=== PATIENT | female | born 1985 | race Caucasian/White ===

== ENCOUNTER 2016-08-29 12:45 | Emergency (ER) | payer OTHER ==
[~2016-08-29] VITALS: Ht 170.1 cm; Wt 127.9 kg
[~2016-08-29 12:45] MED LIST: ALBUTEROL0.09 MG/A2 INH; ALLEGRA60 M2 PO; AMOXICILLIN500 M2 PO; AMOXICILLIN500 MG PO; ANAPROX DS550 MG PO; AUGMENTIN 875-875 MG PO; BENADRYL25 M1 PO; CARAFATE1 G1 PO; CEFDINIR300 MG PO; CLARITIN10 M1 PO; DEXTROMETHORPHAN; DIFLUCAN150 MG PO; FLEXERIL10 MG PO; FLONASE ALLERG9.9 ML NAS; GUAIFENESIN; HYDROCODONE BIT1 T11 PO; IBU800 MG PO; KETOROLAC10 MG PO; LEVAQUIN750 MG PO; LOMOTIL 0.025 M1 TA1 PO; MACROBID100 M1 PO; MEDROL DOSEPAK4 MG PO; MOTRIN800 MG PO; Motrin,Rufen800 MG PO; NAPROXEN375 MG PO; PENICILLIN VK500 MG PO; PREDNICOT20 MG PO; PREDNISONE10 MG PO; PREDNISONE20 MG PO; PROTONIX40 MG PO; Peridex 473 ML473 ML PO; ROBITUSSIN AC 110 ML PO; ROBITUSSIN DM 105 ML PO; TYLENOL W/CODEI1 TA2 PO; TYLENOL325 M1 PO; ZANTAC 150150 MG PO; ZANTAC150 MG PO; ZITHROMAX Z PA250 MG PO; ZITHROMAX250 MG PO; ZOFRAN ODT4 MG SL; Zofran4 MG PO; [UNRECOGNIZED DRUG - REMARK]
[2016-08-29 12:49] VITALS: BP 115/55
[2016-10-11] MEDS ORDERED: FLONASE ALLERG9.9 ML NAS (17:05)
[2016-10-11] MEDS ORDERED: CLARITIN10 MG PO (17:05)
[2016-10-11] MEDS ORDERED: PREDNISONE10 MG PO (17:05)
== END 2016-08-29 15:21 | disposition home or self-care (01) ==
LOC: ED 12:45
DX: S66.911A Strain of unspecified muscle, fascia and tendon at wrist and hand level, right hand, initial encounter (principal); F17.200 Nicotine dependence, unspecified, uncomplicated; Z91.040 Latex allergy status; Z91.013 Allergy to seafood; W23.0XXA Caught, crushed, jammed, or pinched between moving objects, initial encounter; Y93.89 Activity, other specified; Y92.89 Other specified places as the place of occurrence of the external cause; Y99.9 Unspecified external cause status

== ENCOUNTER 2016-11-13 19:57 | Emergency (ER) | payer OTHER ==
[~2016-11-13] VITALS: Ht 170.1 cm; Wt 126.1 kg
[~2016-11-13 19:57] MED LIST changes: +CLARITIN10 MG PO
[2016-11-13 20:21] VITALS: BP 140/83
[2016-11-13 20:48] LABS: BASO % 0.2 % (0.0-1.0); EOS # 0.2 10*3/uL (0.0-0.4); EOS % 2.5 % (1.0-4.0); HEMATOCRIT 43.4 % (37.0-47.0); HEMOGLOBIN 14.3 g/dl (12.0-16.0); LYMPH % 12.3 % (27.0-41.0); MEAN CELL VOLUME 91.9 fl (81.0-99.0); MEAN CORPUSCULAR HGB 30.3 pg (27.0-31.0); MEAN CORPUSCULAR HGB CONC 32.9 g/dl (33.0-37.0); MEAN PLATELET VOLUME 9.9 fl (9.6-12.3); MONO # 0.4 10*3/uL (0.1-1.0); MONO % 4.9 % (3.0-9.0); NEUT # 6.6 10*3/uL (2.3-7.9); NEUT % 79.7 % (47.0-73.0); PLATELET COUNT AUTOMATED 181 10*3/uL (130-400); RED BLOOD COUNT 4.72 10*6/uL (4.10-5.10); RED CELL DISTRI WIDTH 12.8 % (0-14.5); WHITE BLOOD COUNT 8.3 10*3/uL (4.8-10.8)
[2016-11-13 21:02] LABS: BILIRUBIN 1+ (NEGATIVE); BLOOD NEGATIVE (NEGATIVE); CLARITY SL CLOUDY (CLEAR); COLOR YELLOW (YELLOW); GLUCOSE NEGATIVE (NEGATIVE); KETONE TRACE (NEGATIVE); LEUKO ESTERASE NEGATIVE (NEGATIVE); NITRITE NEGATIVE (NEGATIVE); PROTEIN NEGATIVE (NEGATIVE); SPECIFIC GRAVITY >= 1.030 (1.005-1.030); UROBILINOGEN 0.2 E.U./dl (0.2-1.0)
[2016-11-13 21:03] LABS: ALBUMIN 3.7 gm/dl (3.1-4.5); ALKALINE PHOSPHATASE 74 U/L (45-117); BILIRUBIN, TOTAL 0.5 mg/dl (0.2-1.0); BUN 16 mg/dl (7-24); CARBON DIOXIDE 27 mmol/L (21-32); CHLORIDE 107 mmol/L (98-107); EST GLOM FILT AFRICAN AMERICAN > 60 ml/min; GLUCOSE 87 mg/dL (65-99); POTASSIUM 3.8 mmol/L (3.5-5.1); SGOT/AST 13 IU/L (3-35); SGPT/ALT 24 U/L (12-78); SODIUM 141 mmol/L (136-145)
[2016-11-13 21:21] LABS: RBC 0-2 rbc/hpf (0-2)
[2016-11-13 21:22] LABS: BACTERIA 1+
[2016-11-13 21:23] LABS: URINE REFLEX COMMENT YES (NO)
[2016-11-13] MEDS ORDERED: ANAPROX DS550 MG PO (22:28)
[2016-11-13] MEDS ORDERED: ROBAXIN500 M1 PO (22:28)
== END 2016-11-13 22:32 | disposition home or self-care (01) ==
LOC: ED 19:57
PROVIDERS: Physician Assistant
DX: M54.5 Low back pain (principal); F17.200 Nicotine dependence, unspecified, uncomplicated; Z91.013 Allergy to seafood; Z91.040 Latex allergy status

== ENCOUNTER 2016-12-12 19:31 | Emergency (ER) | payer OTHER ==
[~2016-12-12] VITALS: Ht 170.1 cm; Wt 123.4 kg
[~2016-12-12 19:31] MED LIST changes: +ROBAXIN500 M1 PO
[2016-12-12 19:55] VITALS: BP 128/76
[2016-12-12] MEDS ORDERED: ROBITUSSIN AC 110 ML PO (19:56)
[2016-12-12] MEDS ORDERED: ZITHROMAX250 MG PO (20:35)
[2016-12-12] MEDS ORDERED: PREDNISONE10 MG PO (20:35)
== END 2016-12-12 20:39 | disposition home or self-care (01) ==
LOC: ED 19:31
DX: J40 Bronchitis, not specified as acute or chronic (principal); F17.200 Nicotine dependence, unspecified, uncomplicated; Z91.013 Allergy to seafood; Z91.040 Latex allergy status

== ENCOUNTER 2017-04-28 10:22 | Emergency (ER) | payer OTHER ==
[~2017-04-28] VITALS: Ht 177.8 cm; Wt 113.4 kg
[2017-04-28 10:40] VITALS: BP 139/78
[2017-04-28] MEDS ORDERED: PREDNISONE10 MG PO (11:18)
[2017-04-28] MEDS ORDERED: FLONASE ALLERG9.9 ML NAS (11:18)
[2017-04-28] MEDS ORDERED: ROBITUSSIN DM 105 ML PO (11:18)
[2017-04-28] MEDS ORDERED: CLARITIN10 MG PO (11:18)
== END 2017-04-28 10:54 | disposition home or self-care (01) ==
LOC: ED 10:22
DX: B34.9 Viral infection, unspecified (principal); R03.0 Elevated blood-pressure reading, without diagnosis of hypertension; F17.200 Nicotine dependence, unspecified, uncomplicated; Z91.040 Latex allergy status; Z91.013 Allergy to seafood

== ENCOUNTER 2017-05-14 17:40 | Emergency (ER) | payer OTHER ==
[~2017-05-14] VITALS: Ht 170.1 cm; Wt 126.1 kg
[2017-05-14 18:09] VITALS: BP 123/74
[2017-05-14] MEDS ORDERED: ANAPROX DS550 MG PO (18:29)
[2017-05-14] MEDS ORDERED: CLINDAMYCIN HC300 MG PO (18:29)
== END 2017-05-14 18:35 | disposition home or self-care (01) ==
LOC: ED 17:40
DX: K08.89 Other specified disorders of teeth and supporting structures (principal); R22.0 Localized swelling, mass and lump, head; F17.200 Nicotine dependence, unspecified, uncomplicated; Z98.890 Other specified postprocedural states; Z91.030 Bee allergy status; Z91.040 Latex allergy status; Z91.013 Allergy to seafood

== ENCOUNTER 2017-06-22 15:46 | Emergency (ER) | payer OTHER ==
[~2017-06-22] VITALS: Ht 170.1 cm; Wt 126.1 kg
[~2017-06-22 15:46] MED LIST changes: +CLINDAMYCIN HC300 MG PO
[2017-06-22 16:10] VITALS: BP 117/66
[2017-06-22] MEDS ORDERED: NAPROSYN500 MG PO (16:55)
[2017-06-24] MEDS ORDERED: AVPAK AZITHROM250 M1 PO (08:55)
== END 2017-06-22 17:02 | disposition home or self-care (01) ==
LOC: ED 15:46
DX: J06.9 Acute upper respiratory infection, unspecified (principal); M54.6 Pain in thoracic spine; F17.200 Nicotine dependence, unspecified, uncomplicated; Z98.890 Other specified postprocedural states; Z79.899 Other long term (current) drug therapy; Z91.030 Bee allergy status; Z91.040 Latex allergy status; Z91.013 Allergy to seafood

== ENCOUNTER 2017-07-09 13:34 | Emergency (ER) | payer OTHER ==
[~2017-07-09] VITALS: Ht 170.1 cm; Wt 122.5 kg
[~2017-07-09 13:34] MED LIST changes: +AVPAK AZITHROM250 M1 PO; +NAPROSYN500 MG PO
[2017-07-09 13:38] VITALS: BP 132/60
[2017-07-09 14:09] LABS: BASO % 0.4 % (0.0-1.0); EOS # 0.1 10*3/uL (0.0-0.4); EOS % 0.9 % (1.0-4.0); HEMATOCRIT 43.9 % (37.0-47.0); HEMOGLOBIN 14.9 g/dl (12.0-16.0); LYMPH # 1.8 10*3/uL (1.3-4.4); LYMPH % 17.5 % (27.0-41.0); MEAN CELL VOLUME 90.9 fl (81.0-99.0); MEAN CORPUSCULAR HGB 30.8 pg (27.0-31.0); MEAN CORPUSCULAR HGB CONC 33.9 g/dl (33.0-37.0); MONO # 0.8 10*3/uL (0.1-1.0); MONO % 7.7 % (3.0-9.0); NEUT # 7.6 10*3/uL (2.3-7.9); NEUT % 73.2 % (47.0-73.0); PLATELET COUNT AUTOMATED 199 10*3/uL (130-400); RED BLOOD COUNT 4.83 10*6/uL (4.10-5.10); RED CELL DISTRI WIDTH 12.7 % (0-14.5); WHITE BLOOD COUNT 10.3 10*3/uL (4.8-10.8)
[2017-07-09 14:14] LABS: BILIRUBIN NEGATIVE (NEGATIVE); BLOOD NEGATIVE (NEGATIVE); CLARITY SL CLOUDY (CLEAR); COLOR YELLOW (YELLOW); GLUCOSE NEGATIVE (NEGATIVE); KETONE TRACE (NEGATIVE); LEUKO ESTERASE NEGATIVE (NEGATIVE); NITRITE NEGATIVE (NEGATIVE); SPECIFIC GRAVITY 1.025 (1.005-1.030)
[2017-07-09 14:21] LABS: BACTERIA 1+; EPITHELIAL CELLS 21-30; MUCOUS 1+
[2017-07-09 14:23] LABS: URINE AMPHETAMINES < 1000 (1000ng/ml); URINE BARBITURATES < 200 (200ng/ml); URINE BENZODIAZEPINES < 200 (200ng/ml); URINE CANNABINOIDS (THC) < 50 (50ng/ml); URINE COCAINE < 300 (300ng/ml); URINE METHADONE < 300 (300ng/ml); URINE OPIATES < 300 (300ng/ml)
[2017-07-09 14:24] LABS: URINE PHENCYCLIDINE < 25 (25ng/ml)
[2017-07-09 14:27] LABS: ALBUMIN 3.6 gm/dl (3.1-4.5); ALKALINE PHOSPHATASE 79 U/L (45-117); BUN 14 mg/dl (7-24); CHLORIDE 106 mmol/L (98-107); POTASSIUM 3.9 mmol/L (3.5-5.1); SGOT/AST 21 IU/L (3-35); SGPT/ALT 31 U/L (12-78); SODIUM 141 mmol/L (136-145); TOTAL PROTEIN 7.3 gm/dL (6.4-8.2)
[2017-07-09 14:28] LABS: B-hCG (QUALITATIVE) NEGATIVE (NEGATIVE); TROPONIN I < 0.015 ng/ml (<0.045)
[2017-07-09 14:33] LABS: THYROID STIM HORMONE (HS) 0.768 uIU/ml (0.358-4.75)
== END 2017-07-09 15:05 | disposition home or self-care (01) ==
LOC: ED 13:34
PROVIDERS: Internal Medicine
DX: B34.9 Viral infection, unspecified (principal); F17.200 Nicotine dependence, unspecified, uncomplicated; Z91.030 Bee allergy status; Z91.040 Latex allergy status; Z91.013 Allergy to seafood

== ENCOUNTER 2017-09-18 17:08 | Emergency (ER) | payer OTHER ==
[~2017-09-18] VITALS: Ht 170.1 cm; Wt 117.9 kg
[2017-09-18 17:22] VITALS: BP 122/66
[2017-09-18] MEDS ORDERED: LEVOFLOXACIN500 MG PO (19:06)
== END 2017-09-18 19:13 | disposition home or self-care (01) ==
LOC: ED 17:08
DX: J18.9 Pneumonia, unspecified organism (principal); F17.200 Nicotine dependence, unspecified, uncomplicated; Z98.890 Other specified postprocedural states; Z79.899 Other long term (current) drug therapy; Z91.030 Bee allergy status; Z91.040 Latex allergy status; Z91.013 Allergy to seafood

== ENCOUNTER 2018-04-22 19:21 | Emergency (ER) | payer OTHER ==
[~2018-04-22] VITALS: Ht 170.1 cm; Wt 114.8 kg
[~2018-04-22 19:21] MED LIST changes: +LEVOFLOXACIN500 MG PO
[2018-04-22 19:23] VITALS: BP 116/72
[2018-04-22] MEDS ORDERED: AUGMENTIN 875875 MG PO (20:00)
[2018-04-22] MEDS ORDERED: DELTASONE20 M1 PO (20:00)
== END 2018-04-22 20:10 | disposition home or self-care (01) ==
LOC: ED 19:21
DX: J01.90 Acute sinusitis, unspecified (principal); J40 Bronchitis, not specified as acute or chronic; Z91.030 Bee allergy status; Z91.040 Latex allergy status; Z91.013 Allergy to seafood

== ENCOUNTER 2018-05-14 20:17 | Emergency (ER) | payer OTHER ==
[~2018-05-14] VITALS: Ht 170.1 cm; Wt 127.9 kg
[~2018-05-14 20:17] MED LIST changes: +AUGMENTIN 875875 MG PO; +DELTASONE20 M1 PO
[2018-05-14 20:20] VITALS: BP 119/73
[2018-05-14 22:17] LABS: BASO % 0.5 % (0.0-1.0); EOS # 0.3 10*3/uL (0.0-0.4); EOS % 3.1 % (1.0-4.0); HEMATOCRIT 39.3 % (37.0-47.0); LYMPH # 2.6 10*3/uL (1.3-4.4); LYMPH % 32.1 % (27.0-41.0); MEAN CELL VOLUME 92.9 fl (81.0-99.0); MEAN CORPUSCULAR HGB 30.7 pg (27.0-31.0); MEAN CORPUSCULAR HGB CONC 33.1 g/dl (33.0-37.0); MEAN PLATELET VOLUME 9.7 fl (9.6-12.3); MONO # 0.6 10*3/uL (0.1-1.0); MONO % 7.6 % (3.0-9.0); NEUT # 4.5 10*3/uL (2.3-7.9); NEUT % 56.3 % (47.0-73.0); PLATELET COUNT AUTOMATED 208 10*3/uL (130-400); RED BLOOD COUNT 4.23 10*6/uL (4.10-5.10); RED CELL DISTRI WIDTH 13.2 % (0-14.5)
[2018-05-14 22:35] LABS: ALBUMIN 3.4 gm/dl (3.1-4.5); ALKALINE PHOSPHATASE 60 U/L (45-117); BUN 19 mg/dl (7-24); CHLORIDE 110 mmol/L (98-107); CREATININE 0.81 mg/dL (0.55-1.02); POTASSIUM 3.9 mmol/L (3.5-5.1); SGOT/AST 11 IU/L (3-35); SGPT/ALT 21 U/L (12-78); SODIUM 144 mmol/L (136-145); TOTAL PROTEIN 6.9 gm/dL (6.4-8.2)
== END 2018-05-14 23:28 | disposition home or self-care (01) ==
LOC: ED 20:17
PROVIDERS: Physician Assistant
DX: M79.662 Pain in left lower leg (principal); F17.200 Nicotine dependence, unspecified, uncomplicated; Z91.030 Bee allergy status; Z91.040 Latex allergy status; Z91.013 Allergy to seafood

== ENCOUNTER 2018-08-22 15:24 | Emergency (ER) | payer OTHER ==
[~2018-08-22] VITALS: Ht 170.1 cm; Wt 127.0 kg
[2018-08-22 15:24] VITALS: BP 112/42
[2018-08-22] MEDS ORDERED: PROAIR HFA8.5 GM INH (15:47)
[2018-08-22] MEDS ORDERED: PREDNISONE10 MG PO (15:47)
[2018-08-22] MEDS ORDERED: CLARITIN10 MG PO (15:47)
[2018-08-22] MEDS ORDERED: FLONASE ALLERG9.9 ML NAS (15:47)
== END 2018-08-22 16:42 | disposition home or self-care (01) ==
LOC: ED 15:24
DX: B34.9 Viral infection, unspecified (principal); J45.909 Unspecified asthma, uncomplicated; F17.200 Nicotine dependence, unspecified, uncomplicated; Z91.030 Bee allergy status; Z91.040 Latex allergy status; Z91.013 Allergy to seafood

== ENCOUNTER 2018-09-15 08:58 | Emergency (ER) | payer OTHER ==
[~2018-09-15] VITALS: Ht 170.1 cm; Wt 113.4 kg
[~2018-09-15 08:58] MED LIST changes: +PROAIR HFA8.5 GM INH
[2018-09-15 09:00] VITALS: BP 108/67
[2018-09-15] MEDS ORDERED: VIBRAMYCIN100 MG PO (09:43)
== END 2018-09-15 10:00 | disposition home or self-care (01) ==
LOC: ED 08:58
DX: J32.9 Chronic sinusitis, unspecified (principal); F17.210 Nicotine dependence, cigarettes, uncomplicated; Z91.030 Bee allergy status; Z91.040 Latex allergy status; Z91.013 Allergy to seafood

== ENCOUNTER 2018-10-05 21:20 | Emergency (ER) | payer OTHER ==
[~2018-10-05] VITALS: Ht 170.1 cm; Wt 122.5 kg
[~2018-10-05 21:20] MED LIST changes: +VIBRAMYCIN100 MG PO
[2018-10-05 21:22] VITALS: BP 107/65
[2018-10-05] MEDS ORDERED: PENICILLIN-VK500 MG PO (21:47)
[2018-10-05] MEDS ORDERED: NAPROSYN500 MG PO (21:47)
[2019-02-14] MEDS ORDERED: PREDNISONE10 MG PO (14:57)
[2019-02-14] MEDS ORDERED: PROAIR HFA8.5 GM INH (14:57)
== END 2018-10-05 21:54 | disposition home or self-care (01) ==
LOC: ED 21:20
DX: K02.9 Dental caries, unspecified (principal); F17.200 Nicotine dependence, unspecified, uncomplicated; Z79.899 Other long term (current) drug therapy; Z79.2 Long term (current) use of antibiotics

== ENCOUNTER 2019-03-09 17:36 | Emergency (ER) | payer OTHER ==
[~2019-03-09 17:36] MED LIST changes: +PENICILLIN-VK500 MG PO
[2019-03-09 17:38] VITALS: BP 129/73
[2019-03-09] MEDS ORDERED: AUGMENTIN 500500 M1 PO (17:45)
[2019-03-09] MEDS ORDERED: IBUPROFEN600 MG PO (18:07)
[2019-03-09] MEDS ORDERED: AMOXICILLIN500 M2 PO (18:07)
== END 2019-03-09 18:26 | disposition home or self-care (01) ==
LOC: ED 17:36
DX: K08.89 Other specified disorders of teeth and supporting structures (principal); Z79.899 Other long term (current) drug therapy; Z79.2 Long term (current) use of antibiotics

== ENCOUNTER 2019-05-03 17:14 | Emergency (ER) | payer OTHER ==
[~2019-05-03] VITALS: Ht 170.1 cm; Wt 114.3 kg
[~2019-05-03 17:14] MED LIST changes: +AUGMENTIN 500500 M1 PO; +IBUPROFEN600 MG PO
[2019-05-03 17:17] VITALS: BP 122/67
[2019-05-03] MEDS ORDERED: LORATADINE-D 11 EACH PO (19:13)
== END 2019-05-03 19:18 | disposition home or self-care (01) ==
LOC: ED 17:14
DX: J34.2 Deviated nasal septum (principal); J30.2 Other seasonal allergic rhinitis; F17.200 Nicotine dependence, unspecified, uncomplicated; Z98.890 Other specified postprocedural states

== ENCOUNTER 2019-05-29 23:01 | Emergency (ER) | payer OTHER ==
[~2019-05-29] VITALS: Ht 165.1 cm; Wt 72.6 kg
[~2019-05-29 23:01] MED LIST changes: +LORATADINE-D 11 EACH PO
[2019-05-29 23:02] VITALS: BP 130/77
[2019-05-29 23:51] LABS: BILIRUBIN NEGATIVE (NEGATIVE); BLOOD NEGATIVE (NEGATIVE); CLARITY SL CLOUDY (CLEAR); COLOR YELLOW (YELLOW); GLUCOSE NEGATIVE (NEGATIVE); KETONE NEGATIVE (NEGATIVE); LEUKO ESTERASE NEGATIVE (NEGATIVE); NITRITE NEGATIVE (NEGATIVE); SPECIFIC GRAVITY 1.025 (1.005-1.030); UROBILINOGEN 0.2 E.U./dl (0.2-1.0)
[2019-05-29 23:57] LABS: BACTERIA TRACE; EPITHELIAL CELLS 45-50; WBC 0-2 wbc/hpf (0-5)
== END 2019-05-30 00:28 | disposition home or self-care (01) ==
LOC: ED 23:01
PROVIDERS: Nurse Practitioner Family
DX: Z20.2 Contact with and (suspected) exposure to infections with a predominantly sexual mode of transmission (principal); J45.909 Unspecified asthma, uncomplicated; Z79.2 Long term (current) use of antibiotics; Z79.899 Other long term (current) drug therapy

== ENCOUNTER 2019-07-12 20:23 | Emergency (ER) | payer OTHER ==
[~2019-07-12] VITALS: Ht 170.1 cm; Wt 114.3 kg
[2019-07-12 20:24] VITALS: BP 128/65
[2019-07-12] MEDS ORDERED: TESSALON PERLE100 M1 PO (22:22)
[2019-07-12] MEDS ORDERED: PREDNISONE20 M1 PO (22:22)
[2019-07-12] MEDS ORDERED: PROVENTIL HFA6.7 GM INH (22:22)
== END 2019-07-12 22:40 | disposition home or self-care (01) ==
LOC: ED 20:23
DX: J45.909 Unspecified asthma, uncomplicated (principal); I10 Essential (primary) hypertension; F17.200 Nicotine dependence, unspecified, uncomplicated; Z91.013 Allergy to seafood; Z79.899 Other long term (current) drug therapy

== ENCOUNTER 2019-08-07 13:34 | Emergency (ER) | payer OTHER ==
[~2019-08-07] VITALS: Ht 170.1 cm; Wt 117.9 kg
[~2019-08-07 13:34] MED LIST changes: +PREDNISONE20 M1 PO; +PROVENTIL HFA6.7 GM INH; +TESSALON PERLE100 M1 PO
[2019-08-07 13:36] VITALS: BP 105/66
[2019-08-07] MEDS ORDERED: ZOFRAN4 MG PO (15:40)
== END 2019-08-07 16:00 | disposition home or self-care (01) ==
LOC: ED 13:34
DX: R11.2 Nausea with vomiting, unspecified (principal); R19.7 Diarrhea, unspecified; R68.83 Chills (without fever); J45.909 Unspecified asthma, uncomplicated; I10 Essential (primary) hypertension; F17.200 Nicotine dependence, unspecified, uncomplicated; Z91.013 Allergy to seafood; Z98.51 Tubal ligation status

== ENCOUNTER 2019-08-12 21:31 | Emergency (ER) | payer OTHER ==
[~2019-08-12] VITALS: Ht 170.1 cm; Wt 116.6 kg
[~2019-08-12 21:31] MED LIST changes: +ZOFRAN4 MG PO
[2019-08-12 21:32] VITALS: BP 113/81
[2019-08-12] MEDS ORDERED: CEPHALEXIN500 M1 PO (22:44)
== END 2019-08-12 23:20 | disposition home or self-care (01) ==
LOC: ED 21:31
DX: L03.116 Cellulitis of left lower limb (principal); I10 Essential (primary) hypertension; J45.909 Unspecified asthma, uncomplicated; Z91.013 Allergy to seafood; Z79.899 Other long term (current) drug therapy

== ENCOUNTER → 2019-08-13 | Outpatient (CLI) | payer OTHER ==
[~2019-08-13] MED LIST changes: +CEPHALEXIN500 M1 PO
== END | disposition home or self-care (01) ==
LOC: US 10:00
DX: L03.116 Cellulitis of left lower limb (principal); F17.200 Nicotine dependence, unspecified, uncomplicated

== ENCOUNTER 2019-08-16 16:36 | Inpatient (IN) | payer OTHER ==
[~2019-08-16] VITALS: Ht 170.1 cm; Wt 127.1 kg
[2019-08-16 16:54] VITALS: BP 111/65
[2019-08-16 18:20] LABS: HEMATOCRIT 42.1 % (37.0-47.0); MEAN CELL VOLUME 90.1 fl (81.0-99.0); MEAN CORPUSCULAR HGB CONC 33.3 g/dl (33.0-37.0); MEAN PLATELET VOLUME 12.6 fl (9.6-12.3); PLATELET COUNT AUTOMATED 80 10*3/uL (130-400); RED BLOOD COUNT 4.67 10*6/uL (4.10-5.10); RED CELL DISTRI WIDTH 13.5 % (0-14.5); WHITE BLOOD COUNT 6.3 10*3/uL (4.8-10.8)
[2019-08-16 18:37] LABS: ALBUMIN 3.3 gm/dl (3.1-4.5); ALKALINE PHOSPHATASE 107 U/L (45-117); BUN 10 mg/dl (7-24); CHLORIDE 106 mmol/L (98-107); CREATININE 0.99 mg/dL (0.55-1.02); POTASSIUM 3.4 mmol/L (3.5-5.1); SGOT/AST 42 IU/L (3-35); SGPT/ALT 50 U/L (12-78); SODIUM 137 mmol/L (136-145); TOTAL PROTEIN 7.1 gm/dL (6.4-8.2)
[2019-08-16 18:47] LABS: ATYPICAL LYMPHS 9 % (0-0); TOTAL CELLS COUNTED 100 #CELLS
[2019-08-16 18:48] LABS: OVALOCYTES FEW; PLATELET SUFFICIENCY LOW (NORMAL)
[2019-08-16 20:00] VITALS: BP 119/52
[2019-08-16 21:30] VITALS: BP 119/52
[2019-08-17] VITALS: BP 109/46
[2019-08-17 07:09] LABS: HEMATOCRIT 38.8 % (37.0-47.0); HEMOGLOBIN 12.7 g/dl (12.0-16.0); MEAN CELL VOLUME 90.9 fl (81.0-99.0); MEAN CORPUSCULAR HGB 29.7 pg (27.0-31.0); MEAN CORPUSCULAR HGB CONC 32.7 g/dl (33.0-37.0); MEAN PLATELET VOLUME 10.5 fl (9.6-12.3); RED BLOOD COUNT 4.27 10*6/uL (4.10-5.10); RED CELL DISTRI WIDTH 13.6 % (0-14.5); WHITE BLOOD COUNT 5.5 10*3/uL (4.8-10.8)
[2019-08-17 07:10] LABS: PLATELET COUNT AUTOMATED 156 10*3/uL (130-400)
[2019-08-17 07:36] LABS: BUN 12 mg/dl (7-24); CHLORIDE 109 mmol/L (98-107); CHOLESTEROL 152 mg/dL (<200); CREATININE 1.17 mg/dL (0.55-1.02); PHOSPHOROUS 2.5 mg/dL (2.5-4.9); SODIUM 138 mmol/L (136-145); TRIGLYCERIDES 168 mg/dl (<150); VLDL CHOLESTEROL 34 mg/dL (6-40)
[2019-08-17 07:37] LABS: HDL CHOLESTEROL 26 mg/dl (40-60); LDL CHOLESTEROL 92 mg/dL (9-159)
[2019-08-17 08:00] VITALS: BP 109/61
[2019-08-17 08:18] LABS: VITAMIN D, 25-HYDROXY 17.3 ng/mL (30-100)
[2019-08-17 08:37] LABS: ATYPICAL LYMPHS 8 % (0-0); BASOPHILS 2 % (0-1); TOTAL CELLS COUNTED 100 #CELLS
[2019-08-17 08:38] LABS: PLATELET SUFFICIENCY NORMAL (NORMAL)
[2019-08-17] MEDS ORDERED: CLEOCIN HCL150 MG PO (11:02)
== END 2019-08-17 11:55 | disposition home or self-care (01) | DRG 383 ==
LOC: ED 16:36 → 5E 20:02 → EDHOLD 20:02 → 5E 20:59
PROVIDERS: Internal Medicine; Physician Assistant; ADMIT Internal Medicine
DX: L03.116 Cellulitis of left lower limb (principal); E87.6 Hypokalemia; D69.6 Thrombocytopenia, unspecified; R00.0 Tachycardia, unspecified; R73.9 Hyperglycemia, unspecified; J45.909 Unspecified asthma, uncomplicated; E66.01 Morbid (severe) obesity due to excess calories; R74.0 Nonspecific elevation of levels of transaminase and lactic acid dehydrogenase [LDH]; F17.210 Nicotine dependence, cigarettes, uncomplicated; Z71.6 Tobacco abuse counseling; Z68.41 Body mass index [BMI] 40.0-44.9, adult; Z98.891 History of uterine scar from previous surgery; Z98.51 Tubal ligation status; Z82.49 Family history of ischemic heart disease and other diseases of the circulatory system; Z80.1 Family history of malignant neoplasm of trachea, bronchus and lung; Z82.69 Family history of other diseases of the musculoskeletal system and connective tissue; Z91.013 Allergy to seafood

== ENCOUNTER 2019-08-24 16:17 | Emergency (ER) | payer OTHER ==
[~2019-08-24] VITALS: Ht 170.1 cm; Wt 118.8 kg
[~2019-08-24 16:17] MED LIST changes: +CLEOCIN HCL150 MG PO
[2019-08-24 16:24] VITALS: BP 126/39
== END 2019-08-24 19:06 | disposition home or self-care (01) ==
LOC: ED 16:17
DX: S93.402A Sprain of unspecified ligament of left ankle, initial encounter (principal); F17.210 Nicotine dependence, cigarettes, uncomplicated; Z91.013 Allergy to seafood; W22.8XXA Striking against or struck by other objects, initial encounter; Y93.89 Activity, other specified; Y92.89 Other specified places as the place of occurrence of the external cause; Y99.8 Other external cause status

== ENCOUNTER 2019-10-27 19:13 | Emergency (ER) | payer OTHER ==
[~2019-10-27] VITALS: Ht 170.1 cm; Wt 123.4 kg
[2019-10-27 19:28] VITALS: BP 118/72
[2019-10-27 20:05] LABS: BILIRUBIN NEGATIVE (NEGATIVE); BLOOD 3+ (NEGATIVE); CLARITY SL CLOUDY (CLEAR); COLOR YELLOW (YELLOW); GLUCOSE NEGATIVE (NEGATIVE); KETONE NEGATIVE (NEGATIVE); LEUKO ESTERASE 3+ (NEGATIVE); NITRITE POSITIVE (NEGATIVE); UROBILINOGEN 0.2 E.U./dl (0.2-1.0)
[2019-10-27 20:06] LABS: BACTERIA 4+; RBC TNTC rbc/hpf (0-2); WBC TNTC wbc/hpf (0-5)
[2019-10-27] MEDS ORDERED: AMINOPHYLLIN200 MG PO (21:08)
== END 2019-10-27 21:12 | disposition home or self-care (01) ==
LOC: ED 19:13
PROVIDERS: Physician Assistant
DX: N39.0 Urinary tract infection, site not specified (principal); I10 Essential (primary) hypertension; J45.909 Unspecified asthma, uncomplicated; Z91.013 Allergy to seafood; Z79.899 Other long term (current) drug therapy

== ENCOUNTER 2020-01-26 23:20 | Emergency (ER) | payer OTHER ==
[~2020-01-26] VITALS: Ht 170.1 cm; Wt 117.9 kg
[~2020-01-26 23:20] MED LIST changes: +AMINOPHYLLIN200 MG PO
[2020-01-26 23:36] VITALS: BP 121/51
[2020-01-27] MEDS ORDERED: AMOXICILLIN500 M2 PO (00:39)
== END 2020-01-27 01:09 | disposition home or self-care (01) ==
LOC: ED 23:20
DX: H66.93 Otitis media, unspecified, bilateral (principal); E66.01 Morbid (severe) obesity due to excess calories; J45.909 Unspecified asthma, uncomplicated; I10 Essential (primary) hypertension; F17.210 Nicotine dependence, cigarettes, uncomplicated; Z91.013 Allergy to seafood; Z68.41 Body mass index [BMI] 40.0-44.9, adult

== ENCOUNTER 2020-03-21 15:07 | Emergency (ER) | payer OTHER ==
[~2020-03-21] VITALS: Ht 170.1 cm; Wt 90.7 kg
[2020-03-21 15:44] VITALS: BP 115/66
== END 2020-03-21 16:56 | disposition home or self-care (01) ==
LOC: ED 15:07
DX: R51 Headache (principal); R11.10 Vomiting, unspecified; R19.7 Diarrhea, unspecified; Z20.828 Contact with and (suspected) exposure to other viral communicable diseases; J45.909 Unspecified asthma, uncomplicated; Z79.899 Other long term (current) drug therapy; Z91.013 Allergy to seafood

== ENCOUNTER → 2020-09-05 | Outpatient (CLI) | payer OTHER | END | disposition home or self-care (01) | LOC: COVID19 10:40 | PROVIDERS: ATTEND Family Medicine | DX: Z20.822 Contact with and (suspected) exposure to COVID-19 (principal) ==

== ENCOUNTER 2020-12-26 07:44 | Emergency (ER) | payer OTHER ==
[~2020-12-26] VITALS: Ht 170.1 cm; Wt 128.4 kg
[2020-12-26 07:53] VITALS: BP 135/83
[2020-12-26] MEDS ORDERED: ZITHROMAX250 MG PO (08:04)
== END 2020-12-26 08:04 | disposition home or self-care (01) ==
LOC: ED 07:44
DX: J32.9 Chronic sinusitis, unspecified (principal); Z79.899 Other long term (current) drug therapy; Z98.890 Other specified postprocedural states; Z98.51 Tubal ligation status

== ENCOUNTER 2021-01-14 16:11 | Emergency (ER) | payer OTHER ==
[~2021-01-14] VITALS: Ht 170.1 cm; Wt 135.6 kg
[2021-01-14 16:18] VITALS: BP 125/74
[2021-01-14] MEDS ORDERED: OMNICEF300 MG PO (17:19)
== END 2021-01-14 17:44 | disposition home or self-care (01) ==
LOC: ED 16:11
DX: J32.9 Chronic sinusitis, unspecified (principal); Z79.899 Other long term (current) drug therapy; Z91.013 Allergy to seafood

== ENCOUNTER 2021-03-20 17:22 | Emergency (ER) | payer OTHER ==
[~2021-03-20] VITALS: Ht 170.1 cm; Wt 131.5 kg
[~2021-03-20 17:22] MED LIST changes: +OMNICEF300 MG PO
== END 2021-03-20 18:00 | disposition left against medical advice (07) ==
LOC: ED 17:22
DX: H57.89 Other specified disorders of eye and adnexa (principal); Z53.21 Procedure and treatment not carried out due to patient leaving prior to being seen by health care provider

== ENCOUNTER 2021-07-20 10:11 | Emergency (ER) | payer OTHER ==
[~2021-07-20] VITALS: Ht 170.1 cm; Wt 136.1 kg
[2021-07-20 10:50] LABS: BASO # 0.1 10*3/uL (0.0-0.1); BASO % 0.8 % (0.0-1.0); EOS # 0.2 10*3/uL (0.0-0.4); EOS % 3.2 % (1.0-4.0); HEMATOCRIT 43.9 % (37.0-47.0); LYMPH # 1.9 10*3/uL (1.3-4.4); LYMPH % 28.5 % (27.0-41.0); MEAN CELL VOLUME 91.3 fl (81.0-99.0); MEAN CORPUSCULAR HGB 30.4 pg (27.0-31.0); MEAN CORPUSCULAR HGB CONC 33.3 g/dl (33.0-37.0); MEAN PLATELET VOLUME 9.3 fl (9.6-12.3); MONO # 0.6 10*3/uL (0.1-1.0); MONO % 9.5 % (3.0-9.0); NEUT # 3.8 10*3/uL (2.3-7.9); NEUT % 57.5 % (47.0-73.0); PLATELET COUNT AUTOMATED 235 10*3/uL (130-400); RED BLOOD COUNT 4.81 10*6/uL (4.10-5.10); RED CELL DISTRI WIDTH 12.9 % (0-14.5); WHITE BLOOD COUNT 6.6 10*3/uL (4.8-10.8)
[2021-07-20 11:06] LABS: ALBUMIN 3.2 gm/dl (3.1-4.5); ALKALINE PHOSPHATASE 79 U/L (45-117); BUN 14 mg/dl (7-24); CHLORIDE 106 mmol/L (98-107); CREATININE 0.82 mg/dL (0.55-1.02); LIPASE 106 U/L (73-393); POTASSIUM 4.1 mmol/L (3.5-5.1); SGOT/AST 14 IU/L (3-35); SODIUM 141 mmol/L (136-145); TOTAL PROTEIN 7.1 gm/dL (6.4-8.2)
[2021-07-20 11:07] LABS: SGPT/ALT 22 U/L (12-78)
[2021-07-20] MEDS ORDERED: PRILOSEC20 M1 PO (11:29)
== END 2021-07-20 11:32 | disposition home or self-care (01) ==
LOC: ED 10:11
PROVIDERS: Emergency Medicine
DX: K21.9 Gastro-esophageal reflux disease without esophagitis (principal); M54.50 Low back pain, unspecified; E66.9 Obesity, unspecified; F17.210 Nicotine dependence, cigarettes, uncomplicated; Z91.013 Allergy to seafood

== ENCOUNTER 2021-08-11 16:02 | Emergency (ER) | payer OTHER ==
[~2021-08-11 16:02] MED LIST changes: +PRILOSEC20 M1 PO
== END 2021-08-11 16:33 | disposition left against medical advice (07) ==
LOC: ED 16:02
DX: Z53.21 Procedure and treatment not carried out due to patient leaving prior to being seen by health care provider (principal)

== ENCOUNTER 2021-09-12 16:03 | Emergency (ER) | payer OTHER ==
[~2021-09-12] VITALS: Wt 137.9 kg
[2021-09-12 16:18] VITALS: BP 136/81
[2021-09-12 16:45] LABS: BILIRUBIN Negative (Negative); BLOOD 1+ (Negative); CLARITY Clear (Clear); COLOR Yellow (Yellow); GLUCOSE Negative (Negative); KETONE Negative (Negative); LEUKO ESTERASE 1+ (Negative); NITRITE Negative (Negative); PH 6.5 (4.5-8.0); SPECIFIC GRAVITY <= 1.005 (1.001-1.030); UROBILINOGEN 0.2 E.U./dl (0.0-1.0)
[2021-09-12 16:56] LABS: BACTERIA 1+
[2021-09-12 17:29] LABS: BASO # 0.1 10*3/uL (0.0-0.1); BASO % 0.6 % (0.0-1.0); EOS # 0.2 10*3/uL (0.0-0.4); EOS % 2.7 % (1.0-4.0); LYMPH # 1.9 10*3/uL (1.3-4.4); LYMPH % 24.3 % (27.0-41.0); MEAN CELL VOLUME 90.9 fl (81.0-99.0); MEAN CORPUSCULAR HGB 30.4 pg (27.0-31.0); MEAN CORPUSCULAR HGB CONC 33.4 g/dl (33.0-37.0); MEAN PLATELET VOLUME 9.3 fl (9.6-12.3); MONO # 0.6 10*3/uL (0.1-1.0); MONO % 7.9 % (3.0-9.0); NEUT % 64.2 % (47.0-73.0); PLATELET COUNT AUTOMATED 217 10*3/uL (130-400); RED BLOOD COUNT 4.51 10*6/uL (4.10-5.10); WHITE BLOOD COUNT 7.8 10*3/uL (4.8-10.8)
[2021-09-12 17:47] LABS: ALBUMIN 3.2 gm/dl (3.1-4.5); ALKALINE PHOSPHATASE 80 U/L (45-117); BUN 16 mg/dl (7-24); CHLORIDE 108 mmol/L (98-107); CREATININE 0.88 mg/dL (0.55-1.02); LIPASE 120 U/L (73-393); POTASSIUM 4.2 mmol/L (3.5-5.1); SGOT/AST 19 IU/L (3-35); SGPT/ALT 23 U/L (12-78); SODIUM 138 mmol/L (136-145); TOTAL PROTEIN 6.7 gm/dL (6.4-8.2)
[2021-09-12] MEDS ORDERED: ZOFRAN4 MG PO (18:29)
[2021-09-12] MEDS ORDERED: CEFUROXIME AXE500 MG PO (18:29)
[2021-09-12] MEDS ORDERED: HYDROCODONE-AC1 EAC1 PO (18:29)
[2021-09-12] MEDS ORDERED: FLOMAX0.4 MG PO (18:29)
== END 2021-09-12 18:44 | disposition home or self-care (01) ==
LOC: ED 16:03
PROVIDERS: Family Medicine
DX: N39.0 Urinary tract infection, site not specified (principal); N20.0 Calculus of kidney; F17.210 Nicotine dependence, cigarettes, uncomplicated; Z91.030 Bee allergy status; Z91.013 Allergy to seafood; Z90.89 Acquired absence of other organs; Z98.51 Tubal ligation status; Z98.890 Other specified postprocedural states

== ENCOUNTER 2022-01-13 18:35 | Emergency (ER) | payer OTHER ==
[~2022-01-13 18:35] MED LIST changes: +CEFUROXIME AXE500 MG PO; +FLOMAX0.4 MG PO; +HYDROCODONE-AC1 EAC1 PO
[2022-01-13 18:48] VITALS: BP 130/73
[2022-01-13] MEDS ORDERED: PREDNISONE20 M1 PO (19:44)
== END 2022-01-13 19:46 | disposition home or self-care (01) ==
LOC: ED 18:35
DX: J30.2 Other seasonal allergic rhinitis (principal); J40 Bronchitis, not specified as acute or chronic; Z91.013 Allergy to seafood; Z90.89 Acquired absence of other organs; Z98.890 Other specified postprocedural states; Z98.51 Tubal ligation status; F17.210 Nicotine dependence, cigarettes, uncomplicated

== ENCOUNTER 2022-07-11 10:04 | Emergency (ER) | payer OTHER ==
[~2022-07-11] VITALS: Ht 170.1 cm; Wt 136.1 kg
[2022-07-11 10:34] VITALS: BP 122/75
[2022-07-11] MEDS ORDERED: BENZONATATE100 M1 PO (11:13)
== END 2022-07-11 11:23 | disposition home or self-care (01) ==
LOC: ED 10:04
DX: J11.1 Influenza due to unidentified influenza virus with other respiratory manifestations (principal); Z91.013 Allergy to seafood; Z90.89 Acquired absence of other organs; Z98.51 Tubal ligation status; Z98.890 Other specified postprocedural states; F17.210 Nicotine dependence, cigarettes, uncomplicated

== ENCOUNTER 2023-02-23 21:58 | Emergency (ER) | payer OTHER ==
[~2023-02-23] VITALS: Wt 136.1 kg
[~2023-02-23 21:58] MED LIST changes: +BENZONATATE100 M1 PO
[2023-02-23] MEDS ORDERED: PENICILLIN VK500 MG PO (22:32)
[2023-02-23] MEDS ORDERED: DIFLUCAN150 MG PO (22:56)
== END 2023-02-23 22:54 | disposition home or self-care (01) ==
LOC: ED 21:58
DX: K04.7 Periapical abscess without sinus (principal); H92.02 Otalgia, left ear; J45.909 Unspecified asthma, uncomplicated; I10 Essential (primary) hypertension; E16.2 Hypoglycemia, unspecified; Z91.013 Allergy to seafood; Z90.89 Acquired absence of other organs; Z98.51 Tubal ligation status; Z98.890 Other specified postprocedural states; F17.210 Nicotine dependence, cigarettes, uncomplicated

== ENCOUNTER 2023-04-03 22:41 | Emergency (ER) | payer OTHER ==
[~2023-04-03] VITALS: Ht 170.1 cm; Wt 136.1 kg
[2023-04-03 23:02] VITALS: BP 114/70
[2023-04-03] MEDS ORDERED: AMOX-CLAV 875-1 EACH PO (23:03)
[2023-04-03] MEDS ORDERED: PREDNISONE20 M1 PO (23:03)
== END 2023-04-03 23:12 | disposition home or self-care (01) ==
LOC: ED 22:41
DX: H66.92 Otitis media, unspecified, left ear (principal); F17.210 Nicotine dependence, cigarettes, uncomplicated; Z91.013 Allergy to seafood; Z79.2 Long term (current) use of antibiotics; Z79.899 Other long term (current) drug therapy; Z98.51 Tubal ligation status; Z90.89 Acquired absence of other organs; Z98.890 Other specified postprocedural states

== ENCOUNTER → 2023-05-21 | Outpatient (CLI) | payer OTHER ==
[~2023-05-21] MED LIST changes: +AMOX-CLAV 875-1 EACH PO
== END | disposition home or self-care (01) ==
LOC: CT 09:47
PROVIDERS: ATTEND Specialist
DX: J34.2 Deviated nasal septum (principal); J32.0 Chronic maxillary sinusitis

== ENCOUNTER 2023-09-16 23:01 | Emergency (ER) | payer OTHER ==
[~2023-09-16] VITALS: Ht 170.1 cm
[2023-09-16 23:09] VITALS: BP 124/60
[2023-09-16] MEDS ORDERED: PENICILLIN V POTASSIUM 500 MG TAB PO ONE (23:25)
[2023-09-16] MEDS ORDERED: Acetaminophen/Hydrocodone 5 MG/325 MG TABLET PO ONE (23:25)
[2023-09-16] MEDS ORDERED: Ondansetron Hydrochloride 4 MG TAB SL ONE (23:25)
[2023-09-16] MEDS ORDERED: PENICILLIN VK500 MG PO (23:28)
== END 2023-09-16 23:53 | disposition home or self-care (01) ==
LOC: ED 23:01
DX: K02.9 Dental caries, unspecified (principal); K08.89 Other specified disorders of teeth and supporting structures; J45.909 Unspecified asthma, uncomplicated; I10 Essential (primary) hypertension; F17.210 Nicotine dependence, cigarettes, uncomplicated; Z91.013 Allergy to seafood; Z90.89 Acquired absence of other organs; Z98.51 Tubal ligation status; Z98.890 Other specified postprocedural states

== ENCOUNTER 2023-09-21 09:41 | Emergency (ER) | payer OTHER ==
[~2023-09-21] VITALS: Ht 170.1 cm; Wt 131.5 kg
[2023-09-21 09:59] VITALS: BP 134/72
[2023-09-21] MEDS ORDERED: Ketorolac Tromethamine 60 MG/2 ML VIAL IM ONE (10:05)
== END 2023-09-21 10:22 | disposition home or self-care (01) ==
LOC: ED 09:41
DX: K08.89 Other specified disorders of teeth and supporting structures (principal); F17.210 Nicotine dependence, cigarettes, uncomplicated; Z91.013 Allergy to seafood; Z79.2 Long term (current) use of antibiotics; Z79.899 Other long term (current) drug therapy; Z90.89 Acquired absence of other organs; Z98.890 Other specified postprocedural states; Z98.51 Tubal ligation status

== ENCOUNTER 2024-07-22 07:48 | Emergency (ER) | payer OTHER ==
[~2024-07-22] VITALS: Ht 170.1 cm; Wt 137.9 kg
[2024-07-22 07:57] VITALS: BP 151/91
[2024-07-22] MEDS ORDERED: ALLEGRA ALLERGY60 M2 PO (07:58)
[2024-07-22] MEDS ORDERED: SINGULAIR10 M1 PO (07:58)
[2024-07-22] MEDS ORDERED: FLONASE ALLERG9.9 ML NAS (07:59)
[2024-07-22] MEDS ORDERED: ALBUTEROL 8 GM INHALER INH ONE (09:20)
[2024-07-22] MEDS ORDERED: BENZONATATE150 MG PO (09:26)
[2024-07-22] MEDS ORDERED: INHAL AID 1 KIT DEVICE INH SCH (10:00)
== END 2024-07-22 09:43 | disposition home or self-care (01) ==
LOC: ED 07:48
DX: J98.8 Other specified respiratory disorders (principal); Z20.822 Contact with and (suspected) exposure to COVID-19; J45.909 Unspecified asthma, uncomplicated; I10 Essential (primary) hypertension; F17.210 Nicotine dependence, cigarettes, uncomplicated; Z91.013 Allergy to seafood; Z90.89 Acquired absence of other organs; Z98.51 Tubal ligation status; Z98.890 Other specified postprocedural states

== ENCOUNTER 2024-09-19 09:45 | Emergency (ER) | payer OTHER ==
[~2024-09-19] VITALS: Ht 170.1 cm; Wt 137.4 kg
[~2024-09-19 09:45] MED LIST changes: +ALLEGRA ALLERGY60 M2 PO; +BENZONATATE150 MG PO; +SINGULAIR10 M1 PO
[2024-09-19 10:39] VITALS: BP 122/80
[2024-09-19 13:36] LABS: BASO % 0.7 % (0.0-1.0); EOS # 0.1 10*3/uL (0.0-0.4); HEMATOCRIT 44.2 % (37.0-47.0); MEAN CELL VOLUME 92.9 fl (81.0-99.0); MEAN CORPUSCULAR HGB 29.8 pg (27.0-31.0); MEAN CORPUSCULAR HGB CONC 32.1 g/dl (33.0-37.0); MEAN PLATELET VOLUME 9.5 fl (9.6-12.3); MONO # 0.6 10*3/uL (0.1-1.0); MONO % 13.9 % (3.0-9.0); NEUT # 3.4 10*3/uL (2.3-7.9); NEUT % 73.2 % (47.0-73.0); PLATELET COUNT AUTOMATED 200 10*3/uL (130-400); RED BLOOD COUNT 4.76 10*6/uL (4.10-5.10); RED CELL DISTRI WIDTH 12.9 % (0-14.5); WHITE BLOOD COUNT 4.6 10*3/uL (4.8-10.8)
[2024-09-19] MEDS ORDERED: LEVOFLOXACIN500 MG PO (13:39)
[2024-09-19] MEDS ORDERED: LEVOFLOXACIN 750 MG TAB PO ONE (13:40)
[2024-09-19] MEDS ORDERED: NICODERM CQ1 EAC2 TD (13:46)
[2024-09-19 13:53] LABS: BUN 10 mg/dl (9-23); CHLORIDE 101 mmol/L (98-107); POTASSIUM 3.5 mmol/L (3.4-5.1)
== END 2024-09-19 14:10 | disposition home or self-care (01) ==
LOC: ED 09:45
PROVIDERS: Nurse Practitioner Family
DX: J18.9 Pneumonia, unspecified organism (principal); J45.909 Unspecified asthma, uncomplicated; Z20.822 Contact with and (suspected) exposure to COVID-19; I10 Essential (primary) hypertension; F17.210 Nicotine dependence, cigarettes, uncomplicated; Z91.013 Allergy to seafood; Z90.89 Acquired absence of other organs; Z98.51 Tubal ligation status; Z98.890 Other specified postprocedural states

== ENCOUNTER 2025-02-17 18:15 | Emergency (ER) | payer OTHER ==
[~2025-02-17] VITALS: Ht 170.1 cm; Wt 137.4 kg
[~2025-02-17 18:15] MED LIST changes: +NICODERM CQ1 EAC2 TD
[2025-02-17 18:22] VITALS: BP 145/83
[2025-02-17] MEDS ORDERED: Sulfamethoxazole/Trimethopri 1 TAB TAB PO ONE (18:30)
[2025-02-17] MEDS ORDERED: SEPTDS PO (18:36)
[2025-02-17] MEDS ORDERED: FLUCONAZOLE 150 MG TAB PO ONE (19:05)
== END 2025-02-17 19:15 | disposition home or self-care (01) ==
LOC: ED 18:15
DX: L03.312 Cellulitis of back [any part except buttock and flank] (principal); I10 Essential (primary) hypertension; J45.909 Unspecified asthma, uncomplicated; F17.200 Nicotine dependence, unspecified, uncomplicated; Z79.899 Other long term (current) drug therapy; Z91.013 Allergy to seafood; Z90.89 Acquired absence of other organs; Z98.51 Tubal ligation status; Z98.890 Other specified postprocedural states

== ENCOUNTER 2025-05-08 14:54 | Emergency (ER) | payer OTHER ==
[~2025-05-08] VITALS: Ht 170.1 cm; Wt 137.4 kg
[~2025-05-08 14:54] MED LIST changes: +SEPTDS PO
[2025-05-08] MEDS ORDERED: FLUONAZOLE150 M1 PO (15:00)
[2025-05-08 15:01] VITALS: BP 136/65
== END 2025-05-08 16:46 | disposition home or self-care (01) ==
LOC: ED 14:54
DX: S80.02XA Contusion of left knee, initial encounter (principal); M19.90 Unspecified osteoarthritis, unspecified site; K21.9 Gastro-esophageal reflux disease without esophagitis; J45.909 Unspecified asthma, uncomplicated; E66.01 Morbid (severe) obesity due to excess calories; I10 Essential (primary) hypertension; F17.210 Nicotine dependence, cigarettes, uncomplicated; Z91.013 Allergy to seafood; Z68.41 Body mass index [BMI] 40.0-44.9, adult; Z87.440 Personal history of urinary (tract) infections; Z90.89 Acquired absence of other organs; Z98.890 Other specified postprocedural states; Z98.51 Tubal ligation status; X58.XXXA Exposure to other specified factors, initial encounter; Y93.89 Activity, other specified; Y92.89 Other specified places as the place of occurrence of the external cause; Y99.8 Other external cause status

== ENCOUNTER 2025-05-12 11:08 | Emergency (ER) | payer OTHER ==
[~2025-05-12 11:08] MED LIST changes: +FLUONAZOLE150 M1 PO
[2025-05-12] MEDS ORDERED: FLUCONAZOLE100 MG PO (11:38)
[2025-05-12] MEDS ORDERED: CEPHALEXIN500 M1 PO (11:38)
== END 2025-05-12 11:55 | disposition home or self-care (01) ==
LOC: ED 11:08
DX: L03.116 Cellulitis of left lower limb (principal); F17.210 Nicotine dependence, cigarettes, uncomplicated; Z91.013 Allergy to seafood; Z79.899 Other long term (current) drug therapy; Z90.89 Acquired absence of other organs; Z98.890 Other specified postprocedural states